=== PATIENT | male | born 1950 | race Caucasian/White ===

== ENCOUNTER 2016-10-26 16:23 | Emergency (ER) | payer OTHER ==
[2016-10-26 16:59] VITALS: RESP 18
--- NOTE | 2016-10-26 18:00 | UCPHY ---
H & P Time Seen by Provider: 10/26/16 17:51 Patient Type: New HPI/ROS: This patient has swelling of the parotid gland that started today. He explains the morning had discomfort to the area of [id number] intensity in the through the day swelling has occurred. He had some relief from ibuprofen reports 2/10 discomfort currently. He thinks he may have had a similar episode many years ago but does not recall the details. He notes no other exacerbating or alleviating factors. ROS: No fevers. No dental pain. He does have increased pain when he eats food. 5 point ROS is otherwise negative Past Medical/Surgical History: Past medical history reviewed as per triage sheet Smoking Status: Former smoker Physical Exam: Physical Exam Vital signs are normal. General: No acute distress HEENT: Patient has left parotid swelling-moderate with no overlying warmth or erythema. Oral exam: No dental tenderness or gingival swelling. With massage of the parotid gland I did not appreciate purulent discharge from Stensen's duct. There is no submental swelling. No dysphonia, drooling or stridor. No posterior pharyngeal erythema Eyes: Pupils equal and react to light. Extraocular motions are intact. Neck: Supple no anterior cervical lymphadenopathy Lungs: No respiratory distress. Cardiac: Brisk capillary refill is intact throughout. Skin: No rash or pallor. Neuro: Alert and oriented x3 with no sensorimotor deficits. Cranial nerves 2- 12 grossly intact Initial differential diagnosis: Sialoadenitis of the parotid gland, infection of parotid gland, soft tissue tumor Constitutional: Initial Vital Signs Temperature (C) 36.8 C 10/26/16 16:55 Heart Rate 78 10/26/16 16:55 Respiratory Rate 18 10/26/16 16:55 Blood Pressure 144/83 H 10/26/16 16:55 O2 Sat (%) 94 10/26/16 16:55 O2 Delivery Mode Room Air Allergies/Adverse Reactions: No Known Allergies Allergy (Unverified 10/26/16 16:59) Home Medications: Medication Instructions Recorded Albuterol 10/26/16 Allopurinol 10/26/16 Amox Tr/K Clav (Augmentin) 500 mg PO TID #21 tab 10/26/16 [Augmentin 500/125 MG TAB (*)] Androgel 10/26/16 Aspirin 81mg (*) 10/26/16 Levothyroxine 10/26/16 SIMVASTATIN 10/26/16 Valsartan 10/26/16 metFORMIN HCL 10/26/16 MDM/Departure - MDM ED Course/Re-evaluation: I counseled the patient regarding sialoadenitis. - Depart Disposition: Home, Routine, Self-Care Clinical Impression: Acute sialoadenitis Condition: Good Instructions: Parotid Duct Obstruction (ED) Additional Instructions: Diagnosis: Parotid gland outlet obstruction/sialoadenitis Plan: Warm packs to area gentle massage very Lemon drops to increase elevation Augmentin antibiotic as prescribed Ibuprofen for discomfort and swelling Follow up with the ENT specialist listed below if you're not improving over the next few days with this treatment plan. Happy anniversary! Prescriptions: Amox Tr/K Clav (Augmentin) [Augmentin 500/125 MG TAB (*)] 500 mg PO TID #21 tab Referrals: Isaac Pappas MD [Medical Doctor] - As per Instructions - PQRS PQRS Measurement: 134: Depression screening and followup, PRIME MD-PHQ2 (12 years and older) Over the last 2 weeks, how often have you been bothered by any of the following problems? 1. Feeling down, depressed, or hopeless? 2. Little interest or pleasure in doing things? Patient answered no to both 1 and 2 130: Documentation of medications. Reviewed all patient medications, doses, route and frequency. 226: Do you smoke? [No.] 47: 65 and older: Advanced care planning. Patient designates surrogate decision maker as spouse 51: 18 years old and older with diagnosis of COPD, spirometry performance. NA 52: 18 years old and older with COPD and symptoms of COPD or FEV1<60% predicted prescribed a B Agonist. NA
[2016-10-26 18:37] VITALS: BP 144/87; PULSE 82; TEMP 98.1; O2SAT 97
== END 2016-10-26 18:05 | disposition home or self-care (01) ==
LOC: CED 16:23
DX: K11.21 Acute sialoadenitis (principal); Z87.891 Personal history of nicotine dependence
CPT/HCPCS: G0463-PO

== ENCOUNTER → 2018-06-13 | Outpatient (CLI) | payer MEDICARE | LOC: FIMAGING 12:25 | PROVIDERS: ATTEND Family Medicine | DX: R42 Dizziness and giddiness (principal); E04.1 Nontoxic single thyroid nodule; R59.0 Localized enlarged lymph nodes | CPT/HCPCS: 0126T ==

== ENCOUNTER → 2018-09-05 | Outpatient (CLI) | payer OTHER | LOC: FIMAGING 16:10 | PROVIDERS: ATTEND Internal Medicine Endocrinology, Diabetes & Metabolism | DX: E04.1 Nontoxic single thyroid nodule (principal); R59.0 Localized enlarged lymph nodes ==

== ENCOUNTER → 2018-10-19 | Outpatient (CLI) | payer OTHER | LOC: FIMAGING 13:01 | PROVIDERS: ATTEND Family Medicine | DX: R59.1 Generalized enlarged lymph nodes (principal) ==